=== PATIENT | female | born 1955 | race Two or more races ===

== ENCOUNTER 2024-01-30 10:43 | Outpatient (CLI) | payer OTHER | END 2024-01-30 10:46 | disposition home or self-care (01) | LOC: SONOGRAMA 10:43 | PROVIDERS: ATTEND Pathology Anatomic Pathology | DX: C77.3 Secondary and unspecified malignant neoplasm of axilla and upper limb lymph nodes (principal); C50.919 Malignant neoplasm of unspecified site of unspecified female breast; R59.0 Localized enlarged lymph nodes ==